=== PATIENT | female | born 1950 | race Caucasian/White ===

== ENCOUNTER → 2016-11-08 | Outpatient (CLI) | payer MEDICARE, OTHER ==
--- NOTE | 2016-11-08 16:50 | MY ---
EXAMINATION: Bilateral digital mammography utilizing CAD. HISTORY: Screening exam. Comparison is made to previous studies dated 09/13/2015, 10/08/2012, 017, 06/02/2008. FINDINGS: Bilateral extremely dense breast tissue. No suspicious calcifications, masses or architectural distortions. No pathologic appearing lymph nodes, no abnormal skin thickening or nipple inversion. CAD highlighted regions appear normal at this time. IMPRESSION: BI-RADS category I - negative mammogram. Continued screening according to ACR-ACS guidelines yajaira jones. THE FALSE-NEGATIVE RATE OF MAMMOGRAM IS APPROXIMATELY 10%. MANAGEMENT OF A PALPABLE ABNORMALITY MUST BE BASED UPON CLINICAL GROUNDS. SENSITIVITY FOR DETECTION OF ABNORMALITIES IN DENSE BREASTS IS LOW. NOTE: A letter will be sent to the patient regarding findings. [facility] -- BRAULIO Bernner [phone] - FAX [phone]
== END ==
LOC: MW.MAM 11:22
PROVIDERS: ATTEND Obstetrics & Gynecology
DX: Z12.31 Encounter for screening mammogram for malignant neoplasm of breast (principal)
CPT/HCPCS: G0202; G0202-26

== ENCOUNTER 2017-03-05 06:44 | Observation (INO) | payer MEDICARE, OTHER ==
[2017-03-04 18:08] LABS: CHLORIDE,CL 108 mmol/L (98-110); SODIUM,NA 142 mmol/L (136-146)
[2017-03-05] MEDS ORDERED: Methylene Blue 50 MG/10 ML Ampule ONE (07:21)
[2017-03-05] MEDS ORDERED: Bupivacaine 0.25% 10 ML SDV ONE (07:26)
[2017-03-05] MEDS ORDERED: Ketamine 500 mg/10 ML MDV ONE (07:27)
[2017-03-05] MEDS ORDERED: Neostigmine Methylsulfate 1 MG/ML 5 ML Syringe ONE (07:27)
[2017-03-05] MEDS ORDERED: Propofol 200 MG/20 ML SDV ONE (07:27)
[2017-03-05] MEDS ORDERED: Ondansetron 4 MG/2 ML SDV ONE (07:27)
[2017-03-05] MEDS ORDERED: fentaNYL 100 MCG/2 ML SDV ONE (07:27)
[2017-03-05] MEDS ORDERED: Midazolam 1 MG/ML 2 ML SDV ONE (07:27)
[2017-03-05] MEDS ORDERED: Dexamethasone 4 MG/ML 5 ML MDV ONE (07:27)
[2017-03-05] MEDS ORDERED: Ketorolac 30 MG/ML SDV ONE (07:27)
[2017-03-05] MEDS ORDERED: Rocuronium 10 MG/ML 10 ML Syringe ONE (07:27)
[2017-03-05] MEDS ORDERED: ePHEDrine 50 MG/ML SDV ONE (07:28)
[2017-03-05] MEDS ORDERED: HYDROmorphone 2 MG/ML Syringe ONE (07:30)
--- NOTE | 2017-03-05 07:39 | PCM.PREANE ---
Preanesthetic Assessment - Anesthesia/Transfusion/Family Hx Anesthesia History: Prior Anesthesia Reaction Family History of Anesthesia Reaction: No Transfusion History: No Prior Transfusion(s) - Review of Systems General: No Symptoms Pulmonary: No Symptoms Cardiovascular: No Symptoms Gastrointestinal: No Symptoms Neurological: No Symptoms Other: Reports: None - Physical Assessment NPO Status Date: 03/04/17 O2 Sat by Pulse Oximetry: 98 Respiratory Rate: 16 Vital Signs: Last Vital Signs Temp 36.3 C 03/05/17 07:01 Pulse 80 03/05/17 07:01 Resp 16 03/05/17 07:01 BP 128/89 03/05/17 07:01 Pulse Ox 98 03/05/17 07:01 Height: 1.55 m Weight: 73.936 kg ASA Class: 2 Mental Status: Alert & Oriented x3 Airway Class: Mallampati = 2 Dentition: Reports: Normal Dentition Lungs: Clear to Auscultation, Normal Respiratory Effort Cardiovascular: Regular Rate, Regular Rhythm - Lab Values: Laboratory Last Values WBC 7.26 K/uL (4.0-11.0) 03/04/17 17:37 RBC 4.56 M/uL (4.30-5.90) 03/04/17 17:37 Hgb 13.5 g/dL (12.0-16.0) 03/04/17 17:37 Hct 40.6 % (36.0-46.0) 03/04/17 17:37 MCV 89.0 fL (80.0-98.0) 03/04/17 17:37 MCH 29.6 pg (27.0-32.0) 03/04/17 17:37 MCHC 33.3 g/dL (31.0-37.0) 03/04/17 17:37 RDW Std Deviation 47.3 fl (28.0-62.0) 03/04/17 17:37 RDW Coeff of Judy 15 % (11.0-15.0) 03/04/17 17:37 Plt Count 254 K/uL (150-400) 03/04/17 17:37 MPV 9.80 fL (7.40-12.00) 03/04/17 17:37 Nucleated RBC % 0.0 /100WBC 03/04/17 17:37 Nucleated RBCs # 0 K/uL 03/04/17 17:37 Sodium 142 mmol/L (136-146) 03/04/17 17:37 Potassium 4.1 mmol/L (3.5-5.1) 03/04/17 17:37 Chloride 108 mmol/L (98-110) 03/04/17 17:37 Carbon Dioxide 25 mmol/L (21-31) 03/04/17 17:37 BUN 12 mg/dL (6.0-23.0) 03/04/17 17:37 Creatinine 0.9 mg/dL (0.6-1.5) 03/04/17 17:37 Est Cr Clr Drug Dosing 47.03 mL/min 03/04/17 17:37 Estimated GFR (MDRD) > 60.0 ml/min 03/04/17 17:37 Glucose 88 mg/dL (60-110) 03/04/17 17:37 Calcium 9.4 mg/dL (8.8-10.8) 03/04/17 17:37 Blood Type O POSITIVE 03/04/17 17:37 Antibody Screen NEGATIVE 03/04/17 17:37 - Allergies Allergies/Adverse Reactions: Allergies Allergy/AdvReac Type Severity Reaction Status Date / Time No Known Allergies Allergy Verified 03/01/17 09:40 - Anesthesia Plan Pre-Op Medication Ordered: None - Acknowledgements Anesthesia Type Planned: General Anesthesia Pt an Appropriate Candidate for the Planned Anesthesia: Yes Alternatives and Risks of Anesthesia Discussed w Pt/Guardian: Yes Pt/Guardian Understands and Agrees with Anesthesia Plan: Yes PreAnesthesia Questionnaire Other HEENT History: wears glasses Cardiovascular History: Reports: High Cholesterol, Hypertension, Other (See Below) Other Cardiovascular History: had recent Echocardigram, was told ot was "OK" Gastrointestinal History: Reports: GERD 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: Reports: - Past Surgical History GI Surgical History: Reports: Colonoscopy Female Surgical History: Reports: Breast Biopsy, Other (See Below) Other Female Surgeries/Procedures: removal of IUD Musculoskeletal Surgical History: Reports: Arthroscopic Knee - SUBSTANCE USE Smoking Status *Q: Never Smoker Recreational Drug Use History: No - HOME MEDS Home Medications: Home Meds Aspirin [Lo-Dose Aspirin EC] 81 mg PO DAILY 03/01/17 [History] Calcium Carbonate [Calcium] 1 tab PO ASDIRECTED 03/01/17 [History] Famotidine 40 mg PO BEDTIME PRN 03/01/17 [History] Lisinopril 10 mg PO BID 03/01/17 [History] Multivitamin with Minerals [Multiple Vitamin] 1 tab PO DAILY 03/01/17 [History] Simvastatin [Zocor] 20 mg PO BEDTIME 03/01/17 [History] amLODIPine [Norvasc] 10 mg PO BEDTIME 03/01/17 [History] - CURRENT (IN HOUSE) MEDS Current Meds: Current Medications Discontinued Medications Bupivacaine HCl (Sensorcaine-Mpf 0.25%) Confirm Administered Dose 30 ml .ROUTE .STK-MED ONE Stop: 03/05/17 07:27 Dexamethasone (Dexamethasone) Confirm Administered Dose 20 mg .ROUTE .STK-MED ONE Stop: 03/05/17 07:28 Ephedrine Sulfate (Ephedrine Sulfate) Confirm Administered Dose 50 mg .ROUTE .STK-MED ONE Stop: 03/05/17 07:29 Fentanyl (Sublimaze) Confirm Administered Dose 200 mcg .ROUTE .STK-MED ONE Stop: 03/05/17 07:28 Glycopyrrolate () Confirm Administered Dose 1 mg .ROUTE .STK-MED ONE Stop: 03/05/17 07:28 Hydromorphone HCl (Dilaudid) Confirm Administered Dose 2 mg .ROUTE .STK-MED ONE Stop: 03/05/17 07:31 Ketamine HCl (Ketalar) Confirm Administered Dose 500 mg .ROUTE .STK-MED ONE Stop: 03/05/17 07:28 Ketorolac Tromethamine (Toradol) Confirm Administered Dose 30 mg .ROUTE .STK- MED ONE Stop: 03/05/17 07:28 Lidocaine HCl (Xylocaine-Mpf 1%) Confirm Administered Dose 5 ml .ROUTE .STK-MED ONE Stop: 03/05/17 07:28 Methylene Blue (Provayblue) Confirm Administered Dose 50 mg .ROUTE .STK-MED ONE Stop: 03/05/17 07:22 Midazolam HCl (Versed 1 Mg/Ml) Confirm Administered Dose 2 mg .ROUTE .STK-MED ONE Stop: 03/05/17 07:28 Neostigmine Methylsulfate (Neostigmine) Confirm Administered Dose 5 mg .ROUTE .STK-MED ONE Stop: 03/05/17 07:28 Ondansetron HCl (Zofran) Confirm Administered Dose 4 mg .ROUTE .STK-MED ONE Stop: 03/05/17 07:28 Propofol (Diprivan 20 Ml) Confirm Administered Dose 200 mg .ROUTE .STK-MED ONE Stop: 03/05/17 07:28 Rocuronium Andrews (Zemuron) Confirm Administered Dose 100 mg .ROUTE .STK-MED ONE Stop: 03/05/17 07:28
[2017-03-05] MEDS ORDERED: Scopolamine 1.5 MG Transdermal Patch TRDERM PRN (07:40)
[2017-03-05] MEDS ORDERED: ceFAZolin 1 GM Vial ONE (07:46)
[2017-03-05] MEDS ORDERED: Sodium Chloride 0.9% 40 ML ONE (07:47)
[2017-03-05] MEDS ORDERED: Furosemide 40 MG/4 ML VIAL ONE (09:31)
[2017-03-05] MEDS ORDERED: Fluorescein 5 ML Vial ONE (09:31)
[2017-03-05] MEDS ORDERED: fentaNYL 100 MCG/2 ML SDV IVPUSH PRN (11:17)
--- NOTE | 2017-03-05 11:26 | PCM.OPNOTE ---
- General Post-Op/Procedure Note Date of Surgery/Procedure: 03/05/17 Operative Procedure(s): Laparoscopic assisted vaginal hysterectomy with bilateral salpingoophorectomy, anterior and posterior colporrhaphy, perineorrhaphy, vaginal vault suspension, cystoscopy Findings: Right ovary adherent to the medial leaf of the broad ligament, otherwise normal pelvis. There was a 4th degree cystocele, third degree uterine prolapse and rectocele. Bilateral ureteral orifices showed copious flow of bright green urine. There was no evidence of bladder or urethral trauma on cystscospocy Pre Op Diagnosis: Urine incontenence, 4th degree cystocele, third degree uterine prolapse and rectocele Post-Op Diagnosis: Same Anesthesia Technique: General ET Tube Other Anesthesia Type: Local marcsierra Primary Surgeon: Sissy Orozco Secondary Surgeon: Nilda Lyles Clip Coater: Torsten Blood Pathology: Uterus, fallopian tubes, ovaries, and vaginal epithelium sent Fluid Replacement, Intraop: 1,600 EBL in mLs: 50 Drain/Tube Comments:: Vaginal packing in place Complications: none known Condition: Good Free Text/Narrative:: Intake & Output 03/04/17 03/05/17 03/05/17 22:59 06:59 14:59 Output Total 300 Balance -300
[2017-03-05] MEDS ORDERED: Acetaminophen/oxyCODONE 325-5 MG Tab PO PRN (11:36)
[2017-03-05] MEDS ORDERED: Ondansetron 4 MG/2 ML SDV IVPUSH PRN (11:36)
[2017-03-05] MEDS ORDERED: Morphine 2 MG/ML Syringe IVPUSH PRN (11:36)
[2017-03-05] MEDS ORDERED: Promethazine 25 MG/ML SDV IM PRN (11:36)
[2017-03-05] MEDS ORDERED: Famotidine 20 MG Tab PO PRN (11:42)
--- NOTE | 2017-03-05 12:14 | OR ---
SURGEON: Sissy Orozco M.D. DATE OF PROCEDURE: 03/05/2017 PREOPERATIVE DIAGNOSIS: Incomplete uterovaginal prolapse. POSTOPERATIVE DIAGNOSIS: Incomplete uterovaginal prolapse. PROCEDURE: Laparoscopically assisted vaginal hysterectomy with bilateral salpingo- oophorectomy, anterior and posterior colporrhaphy, perineorrhaphy, and vaginal vault suspension with cystoscopy. ASSISTANTS: 1. Nilda Lyles MD. 2. Torsten Blood MS-4. ANESTHESIA: General endotracheal. FLUID: 1600 mL crystalloid. ESTIMATED BLOOD LOSS: 50 mL. FINDINGS: Third-degree uterine prolapse, third-degree rectocele with enterocele, fourth- degree cystocele, normal-appearing pelvis except that the right ovary was adherent to the medial leaf of the broad ligament, bilateral ureteral orifices showed copious flow of bright green urine on cystoscopy with no evidence of any trauma to the bladder mucosa. COMPLICATIONS: None known. DISPOSITION: Stable to recovery. BRIEF HISTORY: This is a 66-year-old female with symptomatic pelvic organ prolapse, bulge coming from her vagina, worsening in recent months. She is sexually active. She has noticed urinary urgency, however, she denies any history of stress incontinence. She denies any vaginal bleeding or discharge. She desires to proceed with surgical repair. She has declined pessary. She has a history of severe PID in the 1970s. Most likely, this was related to a [place] shield. We will therefore start with a laparoscopic evaluation. She would like a salpingo- oophorectomy if it does not add significant lead to the procedure. She is therefore consented for a laparoscopically-assisted vaginal hysterectomy with bilateral salpingo-oophorectomy, anterior and posterior colporrhaphy, vaginal vault suspension and cystoscopy. Surgical risks were discussed including bleeding, infection, injury to bowel, bladder, blood vessels, or other organs, risk of thromboembolic event, risk of recurrence of prolapse of 30% to 40%, risk of new onset stress incontinence, risk of anesthesia, risk of dyspareunia, risk of foreshortening the vagina. Understanding all these risks, she does desire to proceed. DESCRIPTION OF PROCEDURE: With the patient in dorsal lithotomy position, under adequate general endotracheal anesthesia, the abdomen was prepped with chlorhexidine and the perineum and vagina were prepped with Betadine and draped in usual fashion for laparoscopically-assisted vaginal surgery. A Vaughan catheter had been placed. It was backfilled with 30 mL of dilute methylene blue. The SCDs were in place. She had received 2 g of Ancef and an appropriate time-out was held. Examination revealed the findings as noted above. A speculum was placed in the vagina. The Hulka tenaculum was placed into the uterus. The speculum was removed. Production Packager's gloves were changed. Attention was turned abdominally, where 3 mL of 0.25% Marcaine were injected inferior to the umbilicus. A 5 mm incision was made with an 11 blade scalpel. The anterior abdominal wall was elevated. Veress needle was inserted. Opening pressure was 4 mmHg. CO2 was insufflated to develop an adequate pneumoperitoneum of 13 mmHg. The Veress needle was removed. The 5 mm port was placed. Laparoscope was placed into the abdominal cavity. There was no evidence of any trauma from the port site placement. The uterus was elevated. There were no significant adhesions in the pelvis except the ovarian adhesion on the right, therefore, two additional ports were placed 2 cm medial and cephalad from the anterosuperior iliac spine on the right and the left placed utilizing 3 mL of 0.25% Marcaine with a 5 mm incision and placement of each port under direct visualization without any difficulty. The uterus was elevated. The ureters were identified deep within the pelvis and well out of the field of dissection. The infundibulopelvic ligament was then doubly ligated and cut using the LigaSure and proceeding proximally along the mesosalpinx to the uterine cornu on the right and the left. On the right where the ovary was adherent to the medial leaf of the broad ligament, this was able to be incorporated into this dissection without any additional dissecting required. Then placing the camera through the right and the left port sequentially using the middle port for the LigaSure, the upper portion of the broad ligament was clamped and ligated and cut using the LigaSure, opening the anterior leaf on the lower portion of the broad ligament to develop an adequate bladder flap over the lower uterine segment. With this being complete, the instruments were removed abdominally and the abdomen was desufflated. Attention was then turned vaginally. The catheter had been released. The patient was placed in a steep Trendelenburg position. A weighted speculum was placed posteriorly and right angle retractor was placed anteriorly. The cervix was grasped with a Trung tenaculum and circumscribed using electrocautery. The posterior cul-de-sac was entered sharply and a Dereje Auvard speculum was placed in the posterior cul-de- sac. The anterior cul-de-sac was entered sharply. A finger was placed to ensure that it was intraperitoneal placement and it was. The right angle retractor was placed into the anterior cul-de-sac. The right and left uterosacral ligaments were then cross-clamped using Jose Francisco clamp, cut and ligated using a Jose Francisco ligature of 2-0 Polysorb, which was retained. One additional pedicle was taken on the right and the left clamping, cutting, and ligating using a Jose Francisco ligature of 2-0 Polysorb. The uterus, tubes, and ovaries were then removed vaginally. The pedicles were hemostatic. The anterior vaginal mucosa was then grasped and hydrodissection was performed. Metzenbaum scissors were used to undermine the anterior vaginal mucosa and the muscularis layer was freed from the overlying vaginal epithelium and reapproximated in the midline using multiple interrupted sutures of 0 Polysorb. Prior to beginning the anterior dissection, Araceli clamp was placed at the location of the right and left uterosacral ligament. With palpation and tension, there was excellent identification of the uterosacral ligaments on the right and the left. Retracting the bowel and rectum appropriately the 2-0 Ethibond was placed placing a single tie as each suture was placed in the uterosacral ligaments on the right and the left starting laterally and proceeding in a medial direction. Once all six sutures have been placed and tied, cystoscopy was performed. There was no evidence of any trauma to the bladder mucosa. IV fluorescein had been given. There was copious flow of green urine from bilateral ureteral orifices with and without tension on the sutures. After the anterior muscularis layer had been closed, a single arm of the Ethibond suture was placed through the anterior muscularis layer with the highest arm being the most medial suture. Attention was then turned posteriorly. A small triangular incision was made in the perineum. The surface epithelium was removed. Hydrodissection was performed. A midline incision was made with the Metzenbaum scissors. The muscularis layer was then dissected and reapproximated using multiple interrupted mattress sutures of 0 Polysorb. The posterior apex was then attached to the retained permanent sutures placing the six posterior arms of the Ethibond through the upper portion of the muscularis layer of the vagina. This being complete, the anterior vaginal mucosa was trimmed. Each suture was then tied with good support of the vaginal cuff. The posterior vaginal mucosa was then trimmed. A running lock suture of 0 Polysorb was utilized to reapproximate the muscularis layer starting anteriorly incorporating the cuff of the vagina and then completing posteriorly to the level of the vaginal introitus where the suture was then passed onto the perineum. Deep running sutures were utilized to reapproximate the perineal tissue and a deep knot was placed and buried. A 3-0 plain was then utilized to reapproximate the more superficial perineal area and the perineal skin. The vagina was then packed. Attention was then turned abdominally where a laparoscopy was again used to evaluate the pelvis, which was completely hemostatic. Therefore, the abdomen was desufflated. The port sites were removed. The skin was closed with subcuticular suture of 4-0 Caprosyn. Final sponge, needle, instrument counts were reported as correct. There were no known complications. The patient was transferred to recovery in good condition. GARCIA GALE /[id number]
--- NOTE | 2017-03-05 16:59 | PCM.SN ---
- Free Text/Narrative Note: POD#0 after LAVH/BSO, A&P repair wtih vault. Pain is adequately controlled, nauseated earlier, now resolved. Has had only crackers thus far. Vitals stable. Discussed operative findings and procedure. Nursing staff to removed packing on power and recovery shift engineer. Continue postop care, may saline lock IV when tolerating PO
[2017-03-05] MEDS: Ketorolac 15 MG/ML SDV IVPUSH SCH ×2 (17:19→23:30)
[2017-03-05] MEDS: Lisinopril 10 MG Tab PO SCH (21:03)
[2017-03-05] MEDS: amLODIPine 5 MG Tab PO SCH (21:04)
[2017-03-06] MEDS ORDERED: Promethazine 25 MG/ML SDV IM ONE (01:53)
[2017-03-06] MEDS ORDERED: Acetaminophen 500 MG Tab PO ONE (02:20)
[2017-03-06 05:19] LABS: CHLORIDE,CL 104 mmol/L (98-110); SODIUM,NA 136 mmol/L (136-146)
[2017-03-06] MEDS: Ketorolac 15 MG/ML SDV IVPUSH SCH ×4 (05:33→17:49)
--- NOTE | 2017-03-06 08:09 | PCM.PN ---
<Torsten Blood - Last Filed: 03/06/17 08:28> - General Info Date of Service: 03/06/17 Admission Dx/Problem (Free Text): Post op laparoscopic assisted vaginal hysterectomy, bilateral salpigoophorectomy , anterior and posterior colporraphy, perineorraphy, and cystoscopy. Fatigue Subjective Update: Pt is feeling better this morning. Her pain has been well controlled. She remained nauseated throughout the evening and vomited twice. She had crackers yesterday evening and an orange slice and part of toast which she is tolerating well so far. She had a temperature of 100.9 last evening and was given Tylenol and her fever subsided. Vaughan catheter was removed this morning and pt has not yet voided. She had good output overnight. Pt has not had a bowel movement yet but is passing gas. Pt denies shortness of breath, chest pain, pain in her legs , or chills. Functional Status: Reports: Pain Controlled - Review of Systems General: Reports: Fever. Denies: Weakness, Chills, Night Sweats Pulmonary: Reports: No Symptoms Cardiovascular: Reports: No Symptoms Gastrointestinal: Reports: No Symptoms Genitourinary: Reports: No Symptoms - Patient Data Vitals - Most Recent: Last Vital Signs Temp 37.7 C 03/06/17 05:15 Pulse 97 03/06/17 04:00 Resp 17 03/06/17 04:00 BP 128/83 03/06/17 04:00 Pulse Ox 94 L 03/06/17 04:00 Weight - Most Recent: 73.936 kg I&O - Last 24 Hours: Intake & Output 03/05/17 03/06/17 03/06/17 22:59 06:59 14:59 Intake Total 100 500 Output Total 1100 1550 Balance -1000 -1050 Lab Results Last 24 Hours: Laboratory Results - last 24 hr 03/06/17 03/06/17 Range/Units 04:48 04:48 WBC 13.57 H (4.0-11.0) K/uL RBC 4.45 (4.30-5.90) M/uL Hgb 13.3 (12.0-16.0) g/dL Hct 39.4 (36.0-46.0) % MCV 88.5 (80.0-98.0) fL MCH 29.9 (27.0-32.0) pg MCHC 33.8 (31.0-37.0) g/dL RDW Std Deviation 47.3 (28.0-62.0) fl RDW Coeff of Judy 15 (11.0-15.0) % Plt Count 260 (150-400) K/uL MPV 9.80 (7.40-12.00) fL Neut % (Auto) 84.4 H (48.0-80.0) % Lymph % (Auto) 9.6 L (16.0-40.0) % [place] % (Auto) 6.0 (0.0-15.0) % Eos % (Auto) 0.0 (0.0-7.0) % Baso % (Auto) 0.0 (0.0-1.5) % Neut # (Auto) 11.5 H (1.4-5.7) K/uL Lymph # (Auto) 1.3 (0.6-2.4) K/uL [place] # (Auto) 0.8 (0.0-0.8) K/uL Eos # (Auto) 0.0 (0.0-0.7) K/uL Baso # (Auto) 0.0 (0.0-0.1) K/uL Nucleated RBC % 0.0 /100WBC Nucleated RBCs # 0 K/uL Sodium 136 (136-146) mmol/L Potassium 3.4 L (3.5-5.1) mmol/L Chloride 104 (98-110) mmol/L Carbon Dioxide 23 (21-31) mmol/L BUN 9 (6.0-23.0) mg/dL Creatinine 0.7 (0.6-1.5) mg/dL Est Cr Clr Drug Dosing 60.46 mL/min Estimated GFR (MDRD) > 60.0 ml/min Glucose 131 H (60-110) mg/dL Calcium 9.0 (8.8-10.8) mg/dL Med Orders - Current: Current Medications Amlodipine Besylate (Norvasc) 10 mg PO BEDTIME HECTOR Last Admin: 03/05/17 21:04 Dose: 10 mg Famotidine (Pepcid) 40 mg PO BEDTIME PRN PRN Reason: Heartburn Last Admin: 03/05/17 23:47 Dose: 40 mg Fentanyl (Sublimaze) 50 mcg IVPUSH Q5M PRN PRN Reason: Pain Ketorolac Tromethamine (Toradol) 15 mg IVPUSH Q6H [facility] Stop: 03/10/17 11:36 Last Admin: 03/06/17 05:33 Dose: 15 mg Lisinopril (Prinivil) 10 mg PO BID [facility] Last Admin: 03/05/17 21:03 Dose: 10 mg Morphine Sulfate (Morphine) 2 mg IVPUSH Q2H PRN PRN Reason: Pain (severe 7-10) Ondansetron HCl (Zofran) 4 mg IVPUSH Q6H PRN PRN Reason: Nausea/Vomiting Last Admin: 03/05/17 21:03 Dose: 4 mg Oxycodone/Acetaminophen (Percocet 325-5 Mg) 1 tab PO Q4H PRN PRN Reason: Pain (moderate 4-6) Promethazine HCl (Phenergan) 25 mg IM Q6H PRN PRN Reason: Nausea/Vomiting Scopolamine (Transderm-Scop) 1.5 mg TRDERM Q72H PRN PRN Reason: Nausea/Vomiting Last Admin: 03/05/17 07:47 Dose: 1.5 mg Discontinued Medications Acetaminophen (Tylenol Extra Strength) 1,000 mg PO ONETIME ONE Stop: 03/06/17 02:21 Last Admin: 03/06/17 02:38 Dose: 1,000 mg Bupivacaine HCl (Sensorcaine-Mpf 0.25%) Confirm Administered Dose 30 ml .ROUTE .STK-MED ONE Stop: 03/05/17 07:27 Cefazolin Sodium (Ancef) Confirm Administered Dose 2 gm .ROUTE .STK-MED ONE Stop: 03/05/17 07:47 Dexamethasone (Dexamethasone) Confirm Administered Dose 20 mg .ROUTE .STK-MED ONE Stop: 03/05/17 07:28 Ephedrine Sulfate (Ephedrine Sulfate) Confirm Administered Dose 50 mg .ROUTE .STK-MED ONE Stop: 03/05/17 07:29 Fentanyl (Sublimaze) Confirm Administered Dose 200 mcg .ROUTE .STK-MED ONE Stop: 03/05/17 07:28 Fluorescein Sodium (Ak-Fluor) Confirm Administered Dose 5 ml .ROUTE .STK-MED ONE Stop: 03/05/17 09:32 Furosemide (Lasix) Confirm Administered Dose 40 mg .ROUTE .STK-MED ONE Stop: 03/05/17 09:32 Glycopyrrolate () Confirm Administered Dose 1 mg .ROUTE .ST-MED ONE Stop: 03/05/17 07:28 Hydromorphone HCl (Dilaudid) Confirm Administered Dose 2 mg .ROUTE .STK-MED ONE Stop: 03/05/17 07:31 Sodium Chloride (Normal Saline) Confirm Administered Dose 40 mls @ as directed .ROUTE .STK-MED ONE Stop: 03/05/17 07:48 Ketamine HCl (Ketalar) Confirm Administered Dose 500 mg .ROUTE .STK-MED ONE Stop: 03/05/17 07:28 Ketorolac Tromethamine (Toradol) Confirm Administered Dose 30 mg .ROUTE .ST- MED ONE Stop: 03/05/17 07:28 Lidocaine HCl (Xylocaine-Mpf 1%) Confirm Administered Dose 5 ml .ROUTE .ST-MED ONE Stop: 03/05/17 07:28 Methylene Blue (Provayblue) Confirm Administered Dose 50 mg .ROUTE .[facility]-MED ONE Stop: 03/05/17 07:22 Midazolam HCl (Versed 1 Mg/Ml) Confirm Administered Dose 2 mg .ROUTE .ST-MED ONE Stop: 03/05/17 07:28 Neostigmine Methylsulfate (Neostigmine) Confirm Administered Dose 5 mg .ROUTE .ST-MED ONE Stop: 03/05/17 07:28 Ondansetron HCl (Zofran) Confirm Administered Dose 4 mg .ROUTE .ST-MED ONE Stop: 03/05/17 07:28 Promethazine HCl (Phenergan) 12.5 mg IM ONETIME ONE Stop: 03/06/17 01:54 Last Admin: 03/06/17 02:12 Dose: 12.5 mg Propofol (Diprivan 20 Ml) Confirm Administered Dose 200 mg .ROUTE .STK-MED ONE Stop: 03/05/17 07:28 Rocuronium [place] (Zemuron) Confirm Administered Dose 100 mg .ROUTE .ST-MED ONE Stop: 03/05/17 07:28 - Exam General: Alert, Oriented Lungs: Normal Respiratory Effort, Other (Slight dry crackles in right lung base) . No: Crackles, Rales, Rhonchi Cardiovascular: Regular Rate, Regular Rhythm GI/Abdominal Exam: Soft, Non-Tender, Other (Bowel sounds hypoactive) Extremities: Non-Tender, No Pedal Edema Wound/Incisions: Healing Well, Dressing Dry and Intact. No: Erythema - Problem List & Annotations (1) Post-operative nausea and vomiting SNOMED Code(s): 3825886 Code(s): R11.2 - NAUSEA WITH VOMITING, UNSPECIFIED; Z98.890 - OTHER SPECIFIED POSTPROCEDURAL STATES Status: Acute Current Visit: Yes (2) Incomplete uterovaginal prolapse SNOMED Code(s): 650752087 Code(s): N81.2 - INCOMPLETE UTEROVAGINAL PROLAPSE Status: Acute Current Visit: Yes (3) Hypertension SNOMED Code(s): 29122050 Code(s): I10 - ESSENTIAL (PRIMARY) HYPERTENSION Status: Chronic Current Visit: Yes QualifierTitle: Hypertension type: essential hypertension Qualified Code( s): I10 - Essential (primary) hypertension - Problem List Review Problem List Initiated/Reviewed/Updated: Yes - Assessment Assessment:: 66 y.o. female post op day #1 laparoscopic assisted vaginal hysterectomy, bilateral salpigoophorectomy, anterior and posterior colporraphy, perineorraphy , and cystoscopy. Pain has been well controlled Fever last night Appetite decreased with vomiting Good urine output but has not voided yet - Plan Plan:: Incentive spirometry once an hour. Frequent assisted ambulation. Continue to monitor vital signs. Monitor urine output and voiding. If pt has another fever greater than 100.4 pt will need blood cultures and empiric antibiotic regimen. Pt will be reassessed in the evening for disposition. <Sissy Orozco - Last Filed: 03/06/17 13:39> - Patient Data Vitals - Most Recent: Last Vital Signs Temp 37.1 C 03/06/17 11:00 Pulse 86 03/06/17 12:00 Resp 18 03/06/17 12:00 BP 132/85 03/06/17 12:00 Pulse Ox 97 03/06/17 12:00 I&O - Last 24 Hours: Intake & Output 03/05/17 03/06/17 03/06/17 22:59 06:59 14:59 Intake Total 100 500 Output Total 1100 1550 75 Balance -1000 -1050 -75 Lab Results Last 24 Hours: Laboratory Results - last 24 hr 03/06/17 03/06/17 Range/Units 04:48 04:48 WBC 13.57 H (4.0-11.0) K/uL RBC 4.45 (4.30-5.90) M/uL Hgb 13.3 (12.0-16.0) g/dL Hct 39.4 (36.0-46.0) % MCV 88.5 (80.0-98.0) fL MCH 29.9 (27.0-32.0) pg MCHC 33.8 (31.0-37.0) g/dL RDW Std Deviation 47.3 (28.0-62.0) fl RDW Coeff of Judy 15 (11.0-15.0) % Plt Count 260 (150-400) K/uL MPV 9.80 (7.40-12.00) fL Neut % (Auto) 84.4 H (48.0-80.0) % Lymph % (Auto) 9.6 L (16.0-40.0) % [place] % (Auto) 6.0 (0.0-15.0) % Eos % (Auto) 0.0 (0.0-7.0) % Baso % (Auto) 0.0 (0.0-1.5) % Neut # (Auto) 11.5 H (1.4-5.7) K/uL Lymph # (Auto) 1.3 (0.6-2.4) K/uL [place] # (Auto) 0.8 (0.0-0.8) K/uL Eos # (Auto) 0.0 (0.0-0.7) K/uL Baso # (Auto) 0.0 (0.0-0.1) K/uL Nucleated RBC % 0.0 /100WBC Nucleated RBCs # 0 K/uL Sodium 136 (136-146) mmol/L Potassium 3.4 L (3.5-5.1) mmol/L Chloride 104 (98-110) mmol/L Carbon Dioxide 23 (21-31) mmol/L BUN 9 (6.0-23.0) mg/dL Creatinine 0.7 (0.6-1.5) mg/dL Est Cr Clr Drug Dosing 60.46 mL/min Estimated GFR (MDRD) > 60.0 ml/min Glucose 131 H (60-110) mg/dL Calcium 9.0 (8.8-10.8) mg/dL Med Orders - Current: Current Medications Amlodipine Besylate (Norvasc) 10 mg PO BEDTIME [facility] Last Admin: 03/05/17 21:04 Dose: 10 mg Bethanechol Chloride (Urecholine) 25 mg PO Q6H [facility] Famotidine (Pepcid) 40 mg PO BEDTIME PRN PRN Reason: Heartburn Last Admin: 03/05/17 23:47 Dose: 40 mg Fentanyl (Sublimaze) 50 mcg IVPUSH Q5M PRN PRN Reason: Pain Ketorolac Tromethamine (Toradol) 15 mg IVPUSH Q6H [facility] Stop: 03/10/17 11:36 Last Admin: 03/06/17 12:07 Dose: Not Given Lisinopril (Prinivil) 10 mg PO BID [facility] Last Admin: 03/06/17 08:53 Dose: 10 mg Morphine Sulfate (Morphine) 2 mg IVPUSH Q2H PRN PRN Reason: Pain (severe 7-10) Ondansetron HCl (Zofran) 4 mg IVPUSH Q6H PRN PRN Reason: Nausea/Vomiting Last Admin: 03/05/17 21:03 Dose: 4 mg Oxycodone/Acetaminophen (Percocet 325-5 Mg) 1 tab PO Q4H PRN PRN Reason: Pain (moderate 4-6) Promethazine HCl (Phenergan) 25 mg IM Q6H PRN PRN Reason: Nausea/Vomiting Scopolamine (Transderm-Scop) 1.5 mg TRDERM Q72H PRN PRN Reason: Nausea/Vomiting Last Admin: 03/05/17 07:47 Dose: 1.5 mg Discontinued Medications Acetaminophen (Tylenol Extra Strength) 1,000 mg PO ONETIME ONE Stop: 03/06/17 02:21 Last Admin: 03/06/17 02:38 Dose: 1,000 mg Bupivacaine HCl (Sensorcaine-Mpf 0.25%) Confirm Administered Dose 30 ml .ROUTE .STK-MED ONE Stop: 03/05/17 07:27 Cefazolin Sodium (Ancef) Confirm Administered Dose 2 gm .ROUTE .STK-MED ONE Stop: 03/05/17 07:47 Dexamethasone (Dexamethasone) Confirm Administered Dose 20 mg .ROUTE .STK-MED ONE Stop: 03/05/17 07:28 Ephedrine Sulfate (Ephedrine Sulfate) Confirm Administered Dose 50 mg .ROUTE .STK-MED ONE Stop: 03/05/17 07:29 Fentanyl (Sublimaze) Confirm Administered Dose 200 mcg .ROUTE .STK-MED ONE Stop: 03/05/17 07:28 Fluorescein Sodium (Ak-Fluor) Confirm Administered Dose 5 ml .ROUTE .STK-MED ONE Stop: 03/05/17 09:32 Furosemide (Lasix) Confirm Administered Dose 40 mg .ROUTE .STK-MED ONE Stop: 03/05/17 09:32 Glycopyrrolate () Confirm Administered Dose 1 mg .ROUTE .STK-MED ONE Stop: 03/05/17 07:28 Hydromorphone HCl (Dilaudid) Confirm Administered Dose 2 mg .ROUTE .STK-MED ONE Stop: 03/05/17 07:31 Sodium Chloride (Normal Saline) Confirm Administered Dose 40 mls @ as directed .ROUTE .ST-MED ONE Stop: 03/05/17 07:48 Ketamine HCl (Ketalar) Confirm Administered Dose 500 mg .ROUTE .STK-MED ONE Stop: 03/05/17 07:28 Ketorolac Tromethamine (Toradol) Confirm Administered Dose 30 mg .ROUTE .STK- MED ONE Stop: 03/05/17 07:28 Lidocaine HCl (Xylocaine-Mpf 1%) Confirm Administered Dose 5 ml .ROUTE .STK-MED ONE Stop: 03/05/17 07:28 Methylene Blue (Provayblue) Confirm Administered Dose 50 mg .ROUTE .STK-MED ONE Stop: 03/05/17 07:22 Midazolam HCl (Versed 1 Mg/Ml) Confirm Administered Dose 2 mg .ROUTE .ST-MED ONE Stop: 03/05/17 07:28 Neostigmine Methylsulfate (Neostigmine) Confirm Administered Dose 5 mg .ROUTE .STK-MED ONE Stop: 03/05/17 07:28 Ondansetron HCl (Zofran) Confirm Administered Dose 4 mg .ROUTE .STK-MED ONE Stop: 03/05/17 07:28 Promethazine HCl (Phenergan) 12.5 mg IM ONETIME ONE Stop: 03/06/17 01:54 Last Admin: 03/06/17 02:12 Dose: 12.5 mg Propofol (Diprivan 20 Ml) Confirm Administered Dose 200 mg .ROUTE .STK-MED ONE Stop: 03/05/17 07:28 Rocuronium [place] (Zemuron) Confirm Administered Dose 100 mg .ROUTE .STK-MED ONE Stop: 03/05/17 07:28 - My Orders Last 24 Hours: My Active Orders 03/05/17 21:00 Lisinopril [Prinivil] 10 mg PO BID amLODIPine [Norvasc] 10 mg PO BEDTIME 03/05/17 Dinner Regular Diet [DIET] 03/06/17 12:51 Bladder Scan [RC] ONETIME 03/06/17 13:30 Urinary Catheter Insertion [Insert Urinary Catheter] [OM.PC] Q24H 03/06/17 13:31 Urinary Catheter Assessment [RC] ASDIRECTED 03/06/17 13:45 Bethanechol [Urecholine] 25 mg PO Q6H 03/06/17 16:00 CBC W/O DIFF,HEMOGRAM [HEME] Routine - Plan Plan:: I have seen and examined patient and agree with above. Currently afebrile monitor for temp today with above measures if afebrile this evening will discharge, recheck CBC at 4 pm. will start bethanechol for urinary retention as postvoid residual was 1000 ml. Change to observation status
[2017-03-06] MEDS: Lisinopril 10 MG Tab PO SCH ×2 (08:53→20:50)
--- NOTE | 2017-03-06 17:53 | PCM.SN ---
<Torsten Blood - Last Filed: 03/06/17 17:56> - Free Text/Narrative Note: S: Pt has not voided since surgery. Pt had 1250ml of output with urinary catheter and was started on bethanecol. Pt's fever has subsided. She has been tolerating food without nausea or vomiting. Has been doing IS and ambulating frequently. O: VS WNL, output A: LATVH, BSO, aterior and posterior colporraphy, perinorraphy, and cystoscopy, post op day #1. Urinary retention Fever Resolved Nausea and vomiting resolved P:Continue bethanecol. Place alvarado catheter if patient has not voided by 1999. Remove alvarado catheter at 0400 on 03/07. Continue IS and frequent ambulation. DC toradal Start alternating acetominophen and ibuprofen <Sissy Orozco - Last Filed: 03/06/17 18:02> - Free Text/Narrative Note: I have seen and examined the patient and agree with above plan. Discussed plan with patient and her , change to observation status for urinary retention , nausea and vomiting.
[2017-03-06] MEDS ORDERED: Ibuprofen 600 MG Tab PO PRN (17:54)
[2017-03-06] MEDS ORDERED: Acetaminophen 325 MG Tab PO PRN (17:54)
[2017-03-06] MEDS: amLODIPine 5 MG Tab PO SCH (20:49)
--- NOTE | 2017-03-07 07:48 | PCM.PN ---
<Torsten Blood - Last Filed: 03/07/17 07:42> - General Info Admission Dx/Problem (Free Text): Post op laparoscopic assisted vaginal hysterectomy, bilateral salpigoophorectomy , anterior and posterior colporraphy, perineorraphy, and cystoscopy. Fatigue Subjective Update: Pt is feeling well this morning. She voided every 1-2 hours last night, usually 100-200ml at a time. Pt is still having a preasure sensation in her suprapubic region which she is unsure of whether she has to urinate or if it is normal postop pain. Pt did have a fever of 100.4 around 2400 last night. Since then her temperature has dropped to WNL. Pt denies chills, night sweats, or aches. Pt has been tolerating food without nausea or vomiting. Pt has had a bowel movement and is passing flatus. Pt denies chest pain,shortness of breath, or pain in her legs. - Review of Systems General: Reports: Fever Pulmonary: Reports: No Symptoms Cardiovascular: Reports: No Symptoms Gastrointestinal: Reports: No Symptoms Genitourinary: Reports: No Symptoms - Patient Data Vitals - Most Recent: Last Vital Signs Temp 37.1 C 03/07/17 04:00 Pulse 96 03/07/17 00:00 Resp 16 03/07/17 00:00 BP 134/88 03/07/17 00:00 Pulse Ox 92 L 03/07/17 00:00 Weight - Most Recent: 73.936 kg I&O - Last 24 Hours: Intake & Output 03/06/17 03/07/17 03/07/17 22:59 06:59 14:59 Intake Total 1000 Output Total 600 700 Balance -600 300 Lab Results Last 24 Hours: Laboratory Results - last 24 hr 03/06/17 Range/Units 16:02 WBC 13.85 H (4.0-11.0) K/uL RBC 4.61 (4.30-5.90) M/uL Hgb 13.9 (12.0-16.0) g/dL Hct 41.0 (36.0-46.0) % MCV 88.9 (80.0-98.0) fL MCH 30.2 (27.0-32.0) pg MCHC 33.9 (31.0-37.0) g/dL RDW Std Deviation 47.8 (28.0-62.0) fl RDW Coeff of Judy 15 (11.0-15.0) % Plt Count 249 (150-400) K/uL MPV 9.80 (7.40-12.00) fL Nucleated RBC % 0.0 /100WBC Nucleated RBCs # 0 K/uL Med Orders - Current: Current Medications Acetaminophen (Tylenol) 650 mg PO Q4H PRN PRN Reason: Pain Last Admin: 03/07/17 03:01 Dose: 650 mg Amlodipine Besylate (Norvasc) 10 mg PO BEDTIME [facility] Last Admin: 03/06/17 20:49 Dose: 10 mg Bethanechol Chloride (Urecholine) 25 mg PO Q6H [facility] Last Admin: 03/07/17 02:56 Dose: 25 mg Famotidine (Pepcid) 40 mg PO BEDTIME PRN PRN Reason: Heartburn Last Admin: 03/05/17 23:47 Dose: 40 mg Fentanyl (Sublimaze) 50 mcg IVPUSH Q5M PRN PRN Reason: Pain Ibuprofen (Motrin) 600 mg PO Q6H PRN PRN Reason: Pain Last Admin: 03/07/17 00:00 Dose: 600 mg Lisinopril (Prinivil) 10 mg PO BID [facility] Last Admin: 03/06/17 20:50 Dose: 10 mg Ondansetron HCl (Zofran) 4 mg IVPUSH Q6H PRN PRN Reason: Nausea/Vomiting Last Admin: 03/05/17 21:03 Dose: 4 mg Promethazine HCl (Phenergan) 25 mg IM Q6H PRN PRN Reason: Nausea/Vomiting Scopolamine (Transderm-Scop) 1.5 mg TRDERM Q72H PRN PRN Reason: Nausea/Vomiting Last Admin: 03/05/17 07:47 Dose: 1.5 mg Discontinued Medications Acetaminophen (Tylenol Extra Strength) 1,000 mg PO ONETIME ONE Stop: 03/06/17 02:21 Last Admin: 03/06/17 02:38 Dose: 1,000 mg Bupivacaine HCl (Sensorcaine-Mpf 0.25%) Confirm Administered Dose 30 ml .ROUTE .STK-MED ONE Stop: 03/05/17 07:27 Cefazolin Sodium (Ancef) Confirm Administered Dose 2 gm .ROUTE .STK-MED ONE Stop: 03/05/17 07:47 Dexamethasone (Dexamethasone) Confirm Administered Dose 20 mg .ROUTE .STK-MED ONE Stop: 03/05/17 07:28 Ephedrine Sulfate (Ephedrine Sulfate) Confirm Administered Dose 50 mg .ROUTE .STK-MED ONE Stop: 03/05/17 07:29 Fentanyl (Sublimaze) Confirm Administered Dose 200 mcg .ROUTE .STK-MED ONE Stop: 03/05/17 07:28 Fluorescein Sodium (Ak-Fluor) Confirm Administered Dose 5 ml .ROUTE .STK-MED ONE Stop: 03/05/17 09:32 Furosemide (Lasix) Confirm Administered Dose 40 mg .ROUTE .STK-MED ONE Stop: 03/05/17 09:32 Glycopyrrolate () Confirm Administered Dose 1 mg .ROUTE .STK-MED ONE Stop: 03/05/17 07:28 Hydromorphone HCl (Dilaudid) Confirm Administered Dose 2 mg .ROUTE .ST-MED ONE Stop: 03/05/17 07:31 Sodium Chloride (Normal Saline) Confirm Administered Dose 40 mls @ as directed .ROUTE .STK-MED ONE Stop: 03/05/17 07:48 Ketamine HCl (Ketalar) Confirm Administered Dose 500 mg .ROUTE .ST-MED ONE Stop: 03/05/17 07:28 Ketorolac Tromethamine (Toradol) Confirm Administered Dose 30 mg .ROUTE .STK- MED ONE Stop: 03/05/17 07:28 Ketorolac Tromethamine (Toradol) 15 mg IVPUSH Q6H [facility] Stop: 03/10/17 11:36 Last Admin: 03/06/17 17:49 Dose: 15 mg Lidocaine HCl (Xylocaine-Mpf 1%) Confirm Administered Dose 5 ml .ROUTE .STK-MED ONE Stop: 03/05/17 07:28 Methylene Blue (Provayblue) Confirm Administered Dose 50 mg .ROUTE .STK-MED ONE Stop: 03/05/17 07:22 Midazolam HCl (Versed 1 Mg/Ml) Confirm Administered Dose 2 mg .ROUTE .STK-MED ONE Stop: 03/05/17 07:28 Morphine Sulfate (Morphine) 2 mg IVPUSH Q2H PRN PRN Reason: Pain (severe 7-10) Neostigmine Methylsulfate (Neostigmine) Confirm Administered Dose 5 mg .ROUTE .STK-MED ONE Stop: 03/05/17 07:28 Ondansetron HCl (Zofran) Confirm Administered Dose 4 mg .ROUTE .STK-MED ONE Stop: 03/05/17 07:28 Oxycodone/Acetaminophen (Percocet 325-5 Mg) 1 tab PO Q4H PRN PRN Reason: Pain (moderate 4-6) Promethazine HCl (Phenergan) 12.5 mg IM ONETIME ONE Stop: 03/06/17 01:54 Last Admin: 03/06/17 02:12 Dose: 12.5 mg Propofol (Diprivan 20 Ml) Confirm Administered Dose 200 mg .ROUTE .STK-MED ONE Stop: 03/05/17 07:28 Rocuronium [place] (Zemuron) Confirm Administered Dose 100 mg .ROUTE .STK-MED ONE Stop: 03/05/17 07:28 - Exam Quality Assessment: DVT Prophylaxis General: Alert, Oriented Lungs: Clear to Auscultation, Normal Respiratory Effort. No: Crackles, Rales, Rhonchi Cardiovascular: Regular Rate, Regular Rhythm. No: Murmurs, Gallops, Rubs GI/Abdominal Exam: Normal Bowel Sounds, Soft, No Distention, No Mass, Tender ( mild, in suprapubic region) Skin: Warm Wound/Incisions: Healing Well, Dressing Dry and Intact, No Drainage. No: Erythema - Problem List & Annotations (1) Post-operative nausea and vomiting SNOMED Code(s): 7614206 Code(s): R11.2 - NAUSEA WITH VOMITING, UNSPECIFIED; Z98.890 - OTHER SPECIFIED POSTPROCEDURAL STATES Status: Resolved Current Visit: Yes (2) Incomplete uterovaginal prolapse SNOMED Code(s): 517030990 Code(s): N81.2 - INCOMPLETE UTEROVAGINAL PROLAPSE Status: Acute Current Visit: Yes (3) Hypertension SNOMED Code(s): 31252439 Code(s): I10 - ESSENTIAL (PRIMARY) HYPERTENSION Status: Chronic Current Visit: Yes QualifierTitle: Hypertension type: essential hypertension Qualified Code( s): I10 - Essential (primary) hypertension - Problem List Review Problem List Initiated/Reviewed/Updated: Yes - Assessment Assessment:: 66 y.o. female post op day #1 laparoscopic assisted vaginal hysterectomy, bilateral salpigoophorectomy, anterior and posterior colporraphy, perineorraphy , and cystoscopy. Pain has been well controlled on tylenol and motrin Fever of 100.4 around midnight Good urine output and voiding without difficulty - Plan Plan:: Continue to monitor patient's temp and vital signs in the morning. Urinary retention is much improved and is not of concern. Continue IS and frequent ambulation. <Sissy Orozco - Last Filed: 03/07/17 08:52> - Patient Data Vitals - Most Recent: Last Vital Signs Temp 37.1 C 03/07/17 04:00 Pulse 96 03/07/17 00:00 Resp 16 03/07/17 00:00 BP 134/88 03/07/17 00:00 Pulse Ox 92 L 03/07/17 00:00 I&O - Last 24 Hours: Intake & Output 03/06/17 03/07/17 03/07/17 22:59 06:59 14:59 Intake Total 1000 Output Total 600 700 Balance -600 300 Lab Results Last 24 Hours: Laboratory Results - last 24 hr 03/06/17 Range/Units 16:02 WBC 13.85 H (4.0-11.0) K/uL RBC 4.61 (4.30-5.90) M/uL Hgb 13.9 (12.0-16.0) g/dL Hct 41.0 (36.0-46.0) % MCV 88.9 (80.0-98.0) fL MCH 30.2 (27.0-32.0) pg MCHC 33.9 (31.0-37.0) g/dL RDW Std Deviation 47.8 (28.0-62.0) fl RDW Coeff of Judy 15 (11.0-15.0) % Plt Count 249 (150-400) K/uL MPV 9.80 (7.40-12.00) fL Nucleated RBC % 0.0 /100WBC Nucleated RBCs # 0 K/uL Med Orders - Current: Current Medications Acetaminophen (Tylenol) 650 mg PO Q4H PRN PRN Reason: Pain Last Admin: 03/07/17 03:01 Dose: 650 mg Amlodipine Besylate (Norvasc) 10 mg PO BEDTIME [facility] Last Admin: 03/06/17 20:49 Dose: 10 mg Amoxicillin/Clavulanate Potassium (Augmentin 875 Mg/125 Mg) 1 tab PO Q12HR [facility] Bethanechol Chloride (Urecholine) 25 mg PO Q6H [facility] Last Admin: 03/07/17 02:56 Dose: 25 mg Famotidine (Pepcid) 40 mg PO BEDTIME PRN PRN Reason: Heartburn Last Admin: 03/05/17 23:47 Dose: 40 mg Fentanyl (Sublimaze) 50 mcg IVPUSH Q5M PRN PRN Reason: Pain Ibuprofen (Motrin) 600 mg PO Q6H PRN PRN Reason: Pain Last Admin: 03/07/17 00:00 Dose: 600 mg Lisinopril (Prinivil) 10 mg PO BID [facility] Last Admin: 03/06/17 20:50 Dose: 10 mg Ondansetron HCl (Zofran) 4 mg IVPUSH Q6H PRN PRN Reason: Nausea/Vomiting Last Admin: 03/05/17 21:03 Dose: 4 mg Promethazine HCl (Phenergan) 25 mg IM Q6H PRN PRN Reason: Nausea/Vomiting Scopolamine (Transderm-Scop) 1.5 mg TRDERM Q72H PRN PRN Reason: Nausea/Vomiting Last Admin: 03/05/17 07:47 Dose: 1.5 mg Tramadol HCl (Ultram) 50 mg PO Q6H PRN PRN Reason: Abdominal Pain Discontinued Medications Acetaminophen (Tylenol Extra Strength) 1,000 mg PO ONETIME ONE Stop: 03/06/17 02:21 Last Admin: 03/06/17 02:38 Dose: 1,000 mg Bupivacaine HCl (Sensorcaine-Mpf 0.25%) Confirm Administered Dose 30 ml .ROUTE .STK-MED ONE Stop: 03/05/17 07:27 Cefazolin Sodium (Ancef) Confirm Administered Dose 2 gm .ROUTE .STK-MED ONE Stop: 03/05/17 07:47 Dexamethasone (Dexamethasone) Confirm Administered Dose 20 mg .ROUTE .STK-MED ONE Stop: 03/05/17 07:28 Ephedrine Sulfate (Ephedrine Sulfate) Confirm Administered Dose 50 mg .ROUTE .STK-MED ONE Stop: 03/05/17 07:29 Fentanyl (Sublimaze) Confirm Administered Dose 200 mcg .ROUTE .STK-MED ONE Stop: 03/05/17 07:28 Fluorescein Sodium (Ak-Fluor) Confirm Administered Dose 5 ml .ROUTE .STK-MED ONE Stop: 03/05/17 09:32 Furosemide (Lasix) Confirm Administered Dose 40 mg .ROUTE .STK-MED ONE Stop: 03/05/17 09:32 Glycopyrrolate () Confirm Administered Dose 1 mg .ROUTE .STK-MED ONE Stop: 03/05/17 07:28 Hydromorphone HCl (Dilaudid) Confirm Administered Dose 2 mg .ROUTE .STK-MED ONE Stop: 03/05/17 07:31 Sodium Chloride (Normal Saline) Confirm Administered Dose 40 mls @ as directed .ROUTE .STK-MED ONE Stop: 03/05/17 07:48 Ketamine HCl (Ketalar) Confirm Administered Dose 500 mg .ROUTE .STK-MED ONE Stop: 03/05/17 07:28 Ketorolac Tromethamine (Toradol) Confirm Administered Dose 30 mg .ROUTE .STK- MED ONE Stop: 03/05/17 07:28 Ketorolac Tromethamine (Toradol) 15 mg IVPUSH Q6H [facility] Stop: 03/10/17 11:36 Last Admin: 03/06/17 17:49 Dose: 15 mg Lidocaine HCl (Xylocaine-Mpf 1%) Confirm Administered Dose 5 ml .ROUTE .STK-MED ONE Stop: 03/05/17 07:28 Methylene Blue (Provayblue) Confirm Administered Dose 50 mg .ROUTE .STK-MED ONE Stop: 03/05/17 07:22 Midazolam HCl (Versed 1 Mg/Ml) Confirm Administered Dose 2 mg .ROUTE .STK-MED ONE Stop: 03/05/17 07:28 Morphine Sulfate (Morphine) 2 mg IVPUSH Q2H PRN PRN Reason: Pain (severe 7-10) Neostigmine Methylsulfate (Neostigmine) Confirm Administered Dose 5 mg .ROUTE .STK-MED ONE Stop: 03/05/17 07:28 Ondansetron HCl (Zofran) Confirm Administered Dose 4 mg .ROUTE .STK-MED ONE Stop: 03/05/17 07:28 Oxycodone/Acetaminophen (Percocet 325-5 Mg) 1 tab PO Q4H PRN PRN Reason: Pain (moderate 4-6) Promethazine HCl (Phenergan) 12.5 mg IM ONETIME ONE Stop: 03/06/17 01:54 Last Admin: 03/06/17 02:12 Dose: 12.5 mg Propofol (Diprivan 20 Ml) Confirm Administered Dose 200 mg .ROUTE .STK-MED ONE Stop: 03/05/17 07:28 Rocuronium [place] (Zemuron) Confirm Administered Dose 100 mg .ROUTE .STK-MED ONE Stop: 03/05/17 07:28 - Problem List & Annotations (1) Urinary retention SNOMED Code(s): 493765776 Code(s): R33.9 - RETENTION OF URINE, UNSPECIFIED Status: Acute Current Visit: Yes (2) Incomplete uterovaginal prolapse SNOMED Code(s): 160768484 Code(s): N81.2 - INCOMPLETE UTEROVAGINAL PROLAPSE Status: Acute Current Visit: Yes (3) Hypertension SNOMED Code(s): 81688475 Code(s): I10 - ESSENTIAL (PRIMARY) HYPERTENSION Status: Chronic Current Visit: Yes Qualifiers: Hypertension type: essential hypertension Qualified Code(s): I10 - Essential (primary) hypertension (4) Post-operative nausea and vomiting SNOMED Code(s): 7333366 Code(s): R11.2 - NAUSEA WITH VOMITING, UNSPECIFIED; Z98.890 - OTHER SPECIFIED POSTPROCEDURAL STATES Status: Resolved Current Visit: Yes - Problem List Review Problem List Initiated/Reviewed/Updated: Yes - My Orders Last 24 Hours: My Active Orders 03/06/17 13:30 Urinary Catheter Insertion [Insert Urinary Catheter] [OM.PC] Q24H 03/06/17 13:31 Urinary Catheter Assessment [RC] ASDIRECTED 03/06/17 13:45 Bethanechol [Urecholine] 25 mg PO Q6H 03/06/17 17:54 Acetaminophen [Tylenol] 650 mg PO Q4H PRN Ibuprofen [Motrin] 600 mg PO Q6H PRN 03/07/17 08:38 traMADol [Ultram] 50 mg PO Q6H PRN 03/07/17 08:44 Ready for Discharge [RC] PER UNIT ROUTINE 03/07/17 09:00 Amoxicillin/Clavulanate K [Augmentin 875 MG/125 MG] 1 tab PO Q12HR - Plan Plan:: I have seen and examined patient and agree with above. Evaluation of perineal area shows no swelling or drainage. Discharge instructions were reviewed with patient and her including assisted lifting restrictions. She is willing to try Tramadol for her pain, narcotics cause severe nausea for her, will try first dose before discharge. Due to recurrent catheterization due to urinary retention postop, will send home with antibiotic coverage for one week. She may also use bethanechol as needed, I do not anticipate recurrence of urinary retention as there was no surgical repair at the level of the urethral.
[2017-03-07] MEDS ORDERED: traMADol 50 MG Tab PO PRN (08:38)
[2017-03-07] MEDS ORDERED: Amoxicillin/Clavulanate K 875-125 MG Tab PO SCH (09:00)
--- NOTE | 2017-03-07 09:30 | PCM48HPAN ---
Post Anesthesia Note - EVALUATION WITHIN 48HRS OF ANESTHETIC Vital Signs in Normal Range: Yes Patient Participated in Evaluation: Yes Respiratory Function Stable: Yes Airway Patent: Yes Cardiovascular Function Stable: Yes Hydration Status Stable: Yes Pain Control Satisfactory: Yes Nausea and Vomiting Control Satisfactory: Yes Mental Status Recovered: Yes
[2017-03-07] MEDS: Lisinopril 10 MG Tab PO SCH (10:19)
[2017-03-07 10:20] VITALS: BP 124/85
== END 2017-03-07 12:40 | disposition home or self-care (01) ==
LOC: MW.SDS 06:44 → MW.OB 11:36 → MW.SDS 03-06 17:00 → MW.OB 03-06 17:00
PROVIDERS: ADMIT Obstetrics & Gynecology; ATTEND Obstetrics & Gynecology
DX: N76.1 Subacute and chronic vaginitis (principal); N81.3 Complete uterovaginal prolapse; I10 Essential (primary) hypertension; E78.00 Pure hypercholesterolemia, unspecified; K21.9 Gastro-esophageal reflux disease without esophagitis; I00 Rheumatic fever without heart involvement; Z79.82 Long term (current) use of aspirin; Z79.899 Other long term (current) drug therapy; Z98.890 Other specified postprocedural states; Z87.440 Personal history of urinary (tract) infections
CPT/HCPCS: 36415; 51701; 57260; 58552; 80048; 85025; 85027; 86850; 86900; 86901; 88307; 96372; A9270; G0378; J0690; J1100; J1170; J1885; J1940; J2250; J2405; J2550; J3010; 00840; J2704